=== PATIENT | female | born 1965 | race African-American/Black ===

== ENCOUNTER 2023-12-30 11:24 | Emergency (ER) | payer MEDICARE ==
[~2023-12-30] VITALS: Ht 165.1 cm; Wt 137.9 kg
[2023-12-30 11:40] VITALS: TEMP 98.4
[2023-12-30] MEDS: HYDROCODONE/APAP 5MG-325MG TAB PO ONE (13:27)
[2023-12-30] MEDS: KETOROLAC TROMETHAMINE 30 MG/ML VIAL IM STA (13:27)
[2023-12-30] MEDS ORDERED: HYDROCODON-ACE1 EA11 PO (14:27)
[2023-12-30 14:51] VITALS: PULSE 80; RESP 15; O2SAT 96
== END 2023-12-30 14:50 | disposition home or self-care (01) ==
LOC: ER 11:44
DX: S92.511A Displaced fracture of proximal phalanx of right lesser toe(s), initial encounter for closed fracture (principal); W22.09XA Striking against other stationary object, initial encounter; Y93.01 Activity, walking, marching and hiking; Y92.89 Other specified places as the place of occurrence of the external cause; I10 Essential (primary) hypertension; E78.5 Hyperlipidemia, unspecified; E03.9 Hypothyroidism, unspecified; J45.909 Unspecified asthma, uncomplicated; K21.9 Gastro-esophageal reflux disease without esophagitis; F41.9 Anxiety disorder, unspecified; F32.A Depression, unspecified
CPT/HCPCS: 73630; 73660; 99283; J1885